=== PATIENT | female | born 1950 | race Caucasian/White ===

== ENCOUNTER → 2020-06-02 | Outpatient (CLI) | payer MEDICARE, OTHER ==
[~2020-06-02] MED LIST: AUGMENTIN 875-1 EACH PO; CIPRODEX OTIC7.5 ML EARLF; FLONASE 0.05% N16 GM; MEDROL4 MG PO; MOBIC15 MG PO; NORCO 7.5-3251 EACH PO; TAMIFLU75 MG PO; VENTOLIN HFA 66.7 GM INH; ZESTRIL20 MG PO; ZYRTEC10 MG PO
[2020-06-02 12:41] LABS: HEMOGLOBIN 12.5 gm/dl (12.3-15.3); RED BLOOD COUNT 4.51 M/UL (4.00-5.10); WHITE BLOOD COUNT 9.9 K/UL (4.5-11.0)
[2020-06-02 13:07] LABS: BUN/CREATININE RATIO 19 (0-10)
== END ==
LOC: LAB 12:21
PROVIDERS: Internal Medicine
DX: M05.9 Rheumatoid arthritis with rheumatoid factor, unspecified (principal); Z79.899 Other long term (current) drug therapy
CPT/HCPCS: 36415; 80053; 85025

== ENCOUNTER 2021-04-27 18:28 | Emergency (ER) | payer MEDICARE ==
[2021-04-27 20:14] LABS: HEMOGLOBIN 12.7 gm/dl (12.3-15.3); RED BLOOD COUNT 4.72 M/UL (4.00-5.10); WHITE BLOOD COUNT 10.9 K/UL (4.5-11.0)
[2021-04-27 20:29] LABS: BUN/CREATININE RATIO 19 (0-10)
== END 2021-04-27 21:54 | disposition left against medical advice (07) ==
LOC: ER1 18:28
PROVIDERS: Physician Assistant
DX: M25.462 Effusion, left knee (principal); I10 Essential (primary) hypertension; F17.210 Nicotine dependence, cigarettes, uncomplicated
CPT/HCPCS: 73564; 80053; 83605; 85025; 85652; 86140; 87040; 99283